=== PATIENT | female | born 1985 | race Two or more races ===

== ENCOUNTER 2019-08-03 12:56 | Emergency (ER) | payer MEDICAID ==
[~2019-08-03] VITALS: Ht 167.6 cm; Wt 81.0 kg
[2019-08-03] MEDS ORDERED: KETOROLAC 60MG/2ML VIAL IM ONE (15:45)
[2019-08-03] MEDS ORDERED: CYCLOBENZAPRINE 10MG TABLET PO ONE (15:45)
[2019-08-03] MEDS ORDERED: MORPHINE SULFATE 10 MG/ML CPJ IV ONE (17:00)
[2019-08-03 18:24] VITALS: BP 118/78
== END 2019-08-03 18:26 | disposition home or self-care (01) ==
LOC: ER 13:27
DX: M54.9 Dorsalgia, unspecified (principal); Z88.0 Allergy status to penicillin
CPT/HCPCS: 96372; 96374; 99283; J1885; J2270